=== PATIENT | male | born 1985 | race Two or more races ===

== ENCOUNTER 2021-05-30 09:11 | Emergency (ER) | payer SELFPAY ==
[~2021-05-30] VITALS: Ht 182.9 cm; Wt 63.6 kg
[2021-05-30] MEDS ORDERED: fentaNYL PF VIAL 100 MCG/2 ML VIAL IVP ONE (09:30)
[2021-05-30] MEDS ORDERED: PIPERACILLIN/TAZOBACTAM 3.375 GM in IV NORMAL SALINE 50ML 50 ML IV ONE (09:30)
[2021-05-30] MEDS ORDERED: methylPREDNISolone SOD SUCC PF 125 MG/2 ML VIAL. IV ONE (09:30)
[2021-05-30] MEDS ORDERED: IV NORMAL SALINE 1000ML BAG 1,000 ML IV ONE (09:30)
[2021-05-30] MEDS ORDERED: KETOROLAC 30 MG/ML VIAL. IVP ONE (09:30)
[2021-05-30 09:54] LABS: BASO # 0.1 x10^3/uL (0.0-0.2); BASO % 1 % (0-3); EOS % 0 % (0-3); HEMATOCRIT 41.9 % (39.0-53.0); HEMOGLOBIN 14.5 g/dL (13.0-17.5); LYMPH # 1.3 x10^3/uL (1.0-4.8); LYMPH % 11 % (24-48); MEAN CORPUSCULAR HEMOGLOBIN 29 pg (25-35); MEAN CORPUSCULAR HGB CONC 35 g/dL (31-37); MEAN CORPUSCULAR VOLUME 84 fL (79-100); MONO # 0.6 x10^3/uL (0.0-1.1); MONO % 5 % (0-9); NEUT # 9.8 x10^3/uL (1.8-7.7); NEUT % 83 % (31-73); PLATELET COUNT 257 x10^3/uL (140-400); RED BLOOD COUNT 4.97 x10^6/uL (4.30-5.70); RED CELL DISTRIBUTION WIDTH 12.5 % (11.5-14.5); WHITE BLOOD COUNT 11.8 x10^3/uL (4.0-11.0)
[2021-05-30 09:58] LABS: CALCIUM 8.8 mg/dL (8.5-10.1); GFR 83.6; POTASSIUM 3.6 mmol/L (3.5-5.1)
--- NOTE | 2021-05-30 10:01 | PHYS DOC ---
Past Medical History Past Surgical History: No Surgical History Smoking Status: Never Smoker Alcohol Use: None General Adult EDM: Chief Complaint: ALLERGIC REACTION HPI: HPI: Patient is a 36 year old male who presents with patient states that approximately 3-4 days prior to getting his wisdom teeth pulled (last Monday) he been taking ibuprofen due to throat pain and tonsil swelling. He then got his wisdom teeth pulled and followed up with the dentist and they stated that he had some swelling and so they placed him on an antibiotic thinking that he had a postprocedure infection of which she started yesterday. They placed him on amoxicillin of which he began taking yesterday. States he awoke this morning with severe pain in his throat and under his tongue and cannot completely open his mouth. Rates his pain a 10 out of 10. He is Swazi-speaking and seismic interpreter phone is used. He denies any other history, fever, headache, chest pain, shortness of air, cough, abdominal pain, nausea, vomiting, diarrhea, inability to swallow saliva. He is Covid vaccinated. Review of Systems: Review of Systems: Constitutional: Denies fever or chills. [] Eyes: Denies change in visual acuity. [] HENT: Denies nasal congestion or +sore throat. + Pain in her tongue [] Respiratory: Denies cough or shortness of breath. [] Cardiovascular: Denies chest pain or edema. [] GI: Denies abdominal pain, nausea, vomiting, bloody stools or diarrhea. [] : Denies dysuria. [] Musculoskeletal: Denies back pain or joint pain. [] Integument: Denies rash. [] Neurologic: Denies headache, focal weakness or sensory changes. [] Endocrine: Denies polyuria or polydipsia. [] Lymphatic: Denies swollen glands. [] Psychiatric: Denies depression or anxiety. [] Heart Score: C/O Chest Pain: No Current Medications: Current Medications Medications (Trade) Dose Ordered Sig/Lainey Start Time Stop Time Status Last Admin Dose Admin Fentanyl Citrate (Fentanyl 2ml Vial) 50 mcg 1X ONCE 05/30/21 09:30 05/30/21 09:33 DC Ketorolac Tromethamine (Toradol 30mg Vial) 30 mg 1X ONCE 05/30/21 09:30 05/30/21 09:33 DC Methylprednisolone Sodium Succinate (SOLU-Medrol 125MG VIAL) 125 mg 1X ONCE 05/30/21 09:30 05/30/21 09:33 DC Piperacillin Sod/ Tazobactam Sod 3.375 gm/Sodium Chloride 50 ml @ 100 mls/hr 1X ONCE 05/30/21 09:30 05/30/21 09:59 Sodium Chloride 1,000 ml @ 1,000 mls/hr 1X ONCE 05/30/21 09:30 05/30/21 10:29 Allergies: Allergies: Allergies Coded Allergies Type Severity Reaction Last Updated Verified No Known Drug Allergies 05/30/21 No Physical Exam: PE: Constitutional: Well developed, well nourished, no acute distress, non-toxic appearance. [] HENT: Normocephalic, atraumatic, bilateral external ears normal, oropharynx moist, no oral exudates, nose normal. Pain of the tongue. Cannot stick out tongue. Cannot fully open mouth. Uvula midline and nonswollen. No drooling. [] Eyes: PERRLA, EOMI, conjunctiva normal, no discharge. [] Neck: Normal range of motion, left throat tenderness, supple, no stridor. [] Cardiovascular:Heart rate regular rhythm, no murmur [] Lungs & Thorax: Bilateral breath sounds clear to auscultation [] Abdomen: Bowel sounds normal, soft, no tenderness, no masses, no pulsatile masses. [] Skin: Warm, dry, no erythema, no rash. [] Back: No tenderness, no CVA tenderness. [] Extremities: No tenderness, no cyanosis, no clubbing, ROM intact, no edema. [] Neurologic: Alert and oriented X 3, normal motor function, normal sensory function, no focal deficits noted. [] Psychologic: Affect normal, judgement normal, mood normal. [] Current Patient Data: Vital Signs: Vital Signs Date Time Temp Pulse Resp B/P (MAP) Pulse Ox O2 Delivery O2 Flow Rate FiO2 05/30/21 09:23 98.0 83 18 121/72 (88) 98 Room Air 98.0 EKG: EKG: [] Radiology/Procedures: Radiology/Procedures: [] Impression: [facility] [address] [place] [address] IMAGING REPORT Signed PATIENT: CLEMENTE FLORES ACCOUNT: [id number] : 1985 LOCATION: ER AGE: 36 SEX: M EXAM STATUS: REG ER ORD. PHYSICIAN: SHANON BURDICK APRN REASON: THROAT PAIN, CAN NOT OPEN MOUTH, CAN NOT SWTICK OUT TONGUE PROCEDURE: CT SOFT TISSUE NECK W/CONTRAST CT NECK SOFT TISSUE WITH IV CONTRAST dated 05/30/2021 10:55 AM Indication:Reason: THROAT PAIN, CAN NOT OPEN MOUTH, CAN NOT SWTICK OUT TONGUE / Spl. Instructions: IV OMNI 300 70 MLS / History: Comparison: No comparison is available. Technique: CT images were performed using infusion of 70 mL Omnipaque 300. Sagittal and coronal reconstructions were obtained. One or more of the following individualized dose reduction techniques were utilized for this examination: 1. Automated exposure control 2. Adjustment of the mA and/or kV according to patient size 3. Use of iterative reconstruction technique Findings: No soft tissue mass is seen. There is asymmetry of the airway with suggestion of some soft tissue swelling on the left extending up from the area of the pi riform sinus and vallecula. There is some lower attenuation in this region, but no rim-enhancing fluid collection is identified. There is a small calcification in the middle of this region. There is no evidence of peritonsillar abscess. There is some subcutaneous edema suggested anteriorly. Some mildly prominent submandibular nodes are seen on the left. There is a mildly prominent left cervical node at the level of the carotid bifurcation and anterior to the sternocleidomastoid muscle. This measures about 1.5 x 1.0 cm transversely. The salivary glands and thyroid appear normal. The paranasal sinuses, mastoid air cells and lung apices appear clear. IMPRESSION: There is asymmetric soft tissue fullness along the left side of the airway at the hypopharynx. No well-formed abscess is seen at this point. This is presumably inflammatory Electronically signed by: Kwame Washington Jr., MD (05/30/2021 11:38 AM) [facility] DICTATED and SIGNED BY: KWAME WASHINGTON Jr, MD DATE: 05/30/21 [id number] 0 Course & Med Decision Making: Course & Med Decision Making Pertinent Labs and Imaging studies reviewed. (See chart for details) See HPI. Alert and oriented x4. Ambulatory steady gait. Speaks in full clear sentences. Skin pink warm and dry. When I palpated his throat his left tonsil did feel swollen and tender. He did have some tenderness under his tongue but patient was not able to fully open his mouth for me to look all the way down his throat and see his tonsils. Uvula was midline and not swollen. Unable to stick out his tongue. Patient states it hurts too badly to open his mouth. Afebrile. Lungs are clear to all auscultation in all lobes. No respiratory distress. No facial swelling or angioedema noted. Tongue is not swollen. CT scan now shows asymptomatic soft tissue fullness along the left side of the airway at the hypopharynx. There is no abscess seen. Spoke with Dr. Baker who is comfortable with keeping the patient watching for airway management if needed. He is given Zosyn and Solu-Medrol in the ED. rapid strep is negative. Rapid Covid is negative. [] Laura Disclaimer: Laura Disclaimer: This electronic medical record was generated, in whole or in part, using a voice recognition dictation system. Departure Departure Impression: Primary Impression: Peritonsillar cellulitis Disposition: ADMITTED INPATIENT Condition: STABLE Referrals: NO PCP (PCP) SHANON BURDICK BEAN SNAPPER May 30, 2021 10:01
[2021-05-30 10:03] LABS: ALBUMIN 3.7 g/dL (3.4-5.0); ALBUMIN/GLOBULIN RATIO 1.1 (1.0-1.7); TOTAL BILIRUBIN 0.9 mg/dL (0.2-1.0)
[2021-05-30] MEDS ORDERED: IOHEXOL 300 MG/ML 100ML VIAL. IV ONE (10:15)
[2021-05-30] MEDS ORDERED: CONTRAST GIVEN. MC PRN (10:30)
--- NOTE | 2021-05-30 11:40 | RAD ---
CT NECK SOFT TISSUE WITH IV CONTRAST dated 05/30/2021 10:55 AM Indication:Reason: THROAT PAIN, CAN NOT OPEN MOUTH, CAN NOT SWTICK OUT TONGUE / Spl. Instructions: IV OMNI 300 70 MLS / History: Comparison: No comparison is available. Technique: CT images were performed using infusion of 70 mL Omnipaque 300. Sagittal and coronal recon structions were obtained. One or more of the following individualized dose reduction techniques were utilized for this examinat ion: 1. Automated exposure control 2. Adjustment of the mA and/or kV according to patient size 3. Use of iterative reconstruction technique Findings: No soft tissue mass is seen. There is asymmetry of the airway with suggestion of some soft tissue swe lling on the left extending up from the area of the piriform sinus and vallecula. There is some lower attenuation in this region, but no rim-enhancing fluid collection is identified. There is a small ca lcification in the middle of this region. There is no evidence of peritonsillar abscess. There is terri e subcutaneous edema suggested anteriorly. Some mildly prominent submandibular nodes are seen on the left. There is a mildly prominent left cervical node at the level of the carotid bifurcation and ante rior to the sternocleidomastoid muscle. This measures about 1.5 x 1.0 cm transversely. The salivary g lands and thyroid appear normal. The paranasal sinuses, mastoid air cells and lung apices appear agnes r. IMPRESSION: There is asymmetric soft tissue fullness along the left side of the airway at the hypopharynx. No wel l-formed abscess is seen at this point. This is presumably inflammatory Electronically signed by: Marcial Washington Jr., MD (05/30/2021 11:38 AM) [facility]ASCarlos Enrique
[2021-05-30] MEDS ORDERED: PIP/TAZO PER PHARMACY MC PRN (12:15)
--- NOTE | 2021-05-30 12:38 | HP ---
DATE OF SERVICE: 05/30/2021 ADMIT DATE: 05/30/2021 CHIEF COMPLAINT: Sore throat after recent oral surgery. HISTORY OF PRESENT ILLNESS: The patient is a pleasant, healthy middle-aged male who had some type of oral procedure within the past few days. He is now having some increased swelling and pain in his throat. I discussed the case with the ER physician. We are going to admit the patient and give him IV steroids and antibiotics. PAST MEDICAL HISTORY: Benign. ALLERGIES: None. FAMILY HISTORY: Diabetes. SOCIAL HISTORY: He does not drink, smoke or take drugs. MEDICATIONS: Reviewed. Please refer to the MRAD. REVIEW OF SYSTEMS: Unable to obtain. He will not talk. PHYSICAL EXAMINATION: VITALS: Within normal limits and are stable. GENERAL: No apparent distress. Alert and oriented. HEENT: He will not open his mouth. MUSCULOSKELETAL: Well developed, well nourished, good range of motion. ENDOCRINE: No thyromegaly was palpated. LYMPHATICS: No cervical chain or axillary nodes were noted. HEMATOPOIETIC: No bruising. NECK: Supple, no JVD, no thyromegaly was noted. LUNGS: Clear to auscultation in all lung kaur without rhonchi or wheezing. HEART: RRR, S1, S2 present. Peripheral pulses intact, no obvious murmurs were noted. ABDOMEN: Soft, nontender. Positive bowel sounds, no organomegaly, normal bowel sounds. EXTREMITIES: Without any cyanosis, clubbing, or edema. Pedal pulses intact, Homans sign is negative. NEUROLOGIC: Normal speech, normal tone. A and O x 3, moves all extremities, no obvious focal deficits. PSYCHIATRIC: Normal affect, normal mood. Stable. SKIN: No ulcerations or rashes, good skin turgor, no jaundice. VASCULAR: Good capillary refill, neurovascular bundle appears to be intact. LABORATORY DATA: White count is 12. Electrolytes are normal. COVID testing is negative. CT of the soft tissues of the neck shows asymmetric soft tissue fullness along the left side of the airway at the hypopharynx, no abscess. ASSESSMENT AND PLAN: Hypopharynx swelling after recent oral surgery. We will go ahead and start IV steroids, IV antibiotics, home meds. Deep venous thrombosis prophylaxis. Full code. P.r.n. pain meds. JOSE ALFREDO/ADRYAN DR: JOSE ALFREDO/timur TID: [id number]
[2021-05-30] MEDS: PIPERACILLIN/TAZOBACTAM 3.375 GM in IV NORMAL SALINE 50ML 50 ML IV SCH ×2 (13:48→19:26)
[2021-05-30] MEDS: IV NORMAL SALINE 1000ML BAG 1,000 ML IV SCH (13:50)
[2021-05-30] MEDS: methylPREDNISolone SOD SUCC PF 40 MG/ML VIAL. IV SCH (21:47)
[2021-05-31] MEDS: PIPERACILLIN/TAZOBACTAM 3.375 GM in IV NORMAL SALINE 50ML 50 ML IV SCH ×3 (05:41→12:12)
[2021-05-31] MEDS: IV NORMAL SALINE 1000ML BAG 1,000 ML IV SCH (05:42)
[2021-05-31] MEDS ORDERED: AMOX1TAB61 PO (09:42)
[2021-05-31] MEDS ORDERED: PRED20TA PO (09:42)
[2021-05-31] MEDS: methylPREDNISolone SOD SUCC PF 40 MG/ML VIAL. IV SCH (12:13)
[2021-05-31 12:59] VITALS: BP 109/79
--- NOTE | 2021-05-31 13:55 | PDOC3 ---
[facility]-Discharge Summary Date of Admission: Date of Admission: May 30, 2021 Date of Discharge: Date of Discharge: May 31, 2021 Admission Diagnosis: Admitting Diagnosis: Peritonsillar cellulitis Discharge Diagnosis: Discharge Diagnosis: Allergic reaction, Hospital Course: Hospital Course: The patient is a pleasant, healthy middle-aged male who had some type of oral procedure within the past few days. He is now having some increased swelling and pain in his throat. I discussed the case with the ER physician. We are going to admit the patient and give him IV steroids and antibiotics. 05/31 Patient evaluated examined at bedside. He was resting in bed noting improvement. He would like to discharge today and he is medically stable for that. Will send in antibiotics and steroids to complete. Otherwise discharge home. Greater than 30 minutes spent on this discharge Disposition: Disposition/Orders: D/C to Home Activity: Activity: Resume previous activity Diet: Diet: Regular Medications: Home Meds Active Scripts Prednisone (PREDNISONE) 20 Mg Tablet, 2 TAB PO DAILY for troat swelling for 5 Days, #10 TAB Prov:THEA CARVER MD 05/31/21 Amoxicillin/Potassium Clav (AUGMENTIN 875-125 TABLET) 1 Each Tablet, 1 TAB PO BID for throat swelling for 10 Days, #20 TAB 0 Refills Prov:THEA CARVER MD 05/31/21 Scheduled Amoxicillin/Potassium Clav (Augmentin 875-125 Tablet), 1 TAB PO BID Prednisone (Prednisone), 2 TAB PO DAILY Justicifation of Admission Dx: Justifications for Admission: Justification of Admission Dx: Yes (peritonsilar cellulitis, allergic reaction) THEA CARVER MD May 31, 2021 13:55
== END 2021-05-31 14:00 | disposition home or self-care (01) ==
LOC: ER 09:11 → UNDOADMOB 12:15 → ED HOLD 12:15 → ER 05-31 14:00 → ED HOLD 06-01 10:25
DX: J36 Peritonsillar abscess (principal); Z20.822 Contact with and (suspected) exposure to COVID-19
CPT/HCPCS: 36415; 70491; 80053; 83605; 85025; 87070; 87426; 87880; 96365; 96366; 96375; 96376; 99285; G0480; J1885; J2543; J2920; J2930; J3010; J7030; Q9967; U0003; U0005